=== PATIENT | male | born 1970 | race American Indian/Alaskan Native ===

== ENCOUNTER 2018-09-01 01:01 | Emergency (ER) | payer OTHER ==
[2018-09-01 01:14] VITALS: BP 187/88
[2018-09-01] MEDS ORDERED: NORCO 5/325 PO STA (03:17)
--- NOTE | 2018-09-01 04:24 | XRay Report ---
PROCEDURE: XR SPINE LUMBOSACRAL 2-3V TECHNIQUE: Lumbar spine radiographs, AP, lateral and spot views. HISTORY: LOWER BACK PAIN COMPARISONS: None . FINDINGS: Alignment: Normal . Vertebral body heights/Disk spaces: Normal . Fracture(s): None . Facets: Normal . Bone mineralization: Normal . IMPRESSION: Normal Examination . This document is electronically signed by Shannan Mancia DO., September 01 2018 04:22:41 AM ET
--- NOTE | 2018-09-01 04:25 | XRay Report ---
PROCEDURE: XR SPINE CERVICAL 2-3V TECHNIQUE: 3 views cervical spine HISTORY: neck pain COMPARISONS: None FINDINGS: Cervical lordosis is within normal limits. Mild intervertebral disc space narrowing at C5-C6 and C6-C 7 with associated endplate spondylosis. Vertebral body heights and intervertebral disc spaces are oth erwise preserved. No fractures. Prevertebral soft tissues are within normal limits. Incomplete chelsie luation of the lung apices is unremarkable. IMPRESSION: Mild sequela of lower cervical disc degeneration. No acute findings. This document is electronically signed by Devin Flor MD., September 01 2018 04:23:18 AM ET
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
== END 2018-09-01 04:45 | disposition home or self-care (01) ==
LOC: ED 01:01
DX: M54.2 Cervicalgia (principal); M54.89 Other dorsalgia; V89.0XXA Person injured in unspecified motor-vehicle accident, nontraffic, initial encounter; Y93.89 Activity, other specified; Y92.488 Other paved roadways as the place of occurrence of the external cause; Y99.8 Other external cause status
CPT/HCPCS: 72040; 72100; 99283